=== PATIENT | male | born 1985 | race Caucasian/White ===

== ENCOUNTER 2020-09-16 08:36 | Emergency (ER) | payer SELFPAY ==
[~2020-09-16] VITALS: Ht 190.5 cm; Wt 105.0 kg
[2020-09-16 08:45] VITALS: BP 112/76
--- NOTE | 2020-09-16 08:48 | NUR ---
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 CALL LIGHT W/I REACH, VSS.
[2020-09-16] MEDS ORDERED: KETOROLAC 30 MG/1 ML ONE (08:56)
[2020-09-16] MEDS ORDERED: KETOROLAC 30 MG/1 ML IM ONE (09:00)
== END 2020-09-16 10:01 | disposition home or self-care (01) ==
LOC: ED 09:18
DX: S39.012A Strain of muscle, fascia and tendon of lower back, initial encounter (principal); F15.129 Other stimulant abuse with intoxication, unspecified; F17.210 Nicotine dependence, cigarettes, uncomplicated; X58.XXXA Exposure to other specified factors, initial encounter; Y93.89 Activity, other specified; Y92.89 Other specified places as the place of occurrence of the external cause; Y99.8 Other external cause status
CPT/HCPCS: 96372; 99283; J1885